=== PATIENT | male | born 1995 | race Caucasian/White ===

== ENCOUNTER 2022-04-17 08:47 | Emergency (ER) | payer MEDICAID ==
[~2022-04-17] VITALS: Ht 177.8 cm; Wt 73.0 kg
[~2022-04-17 08:47] MED LIST: CHLO50TA50 PO; CLOM50CA2 PO; DOCU-138 PO; FLUO20TA29 PO; RISP2 PO; [UNRECOGNIZED DRUG - CODE] PO
[2022-04-17] MEDS ORDERED: ZIPRASIDONE MESYLATE 20MG/VIAL IM ONE (09:00)
[2022-04-17] MEDS ORDERED: ZIPRASIDONE MESYLATE 20MG/VIAL IM NR (10:00)
[2022-04-17 13:49] VITALS: BP 122/78
== END 2022-04-17 13:51 | disposition home or self-care (01) ==
LOC: ER 08:47
DX: F84.0 Autistic disorder (principal)
CPT/HCPCS: 99285; J3486

== ENCOUNTER 2022-07-04 15:04 | Emergency (ER) | payer MEDICAID ==
[~2022-07-04] VITALS: Ht 162.6 cm; Wt 73.0 kg
[2022-07-04 15:15] VITALS: BP 113/77
== END 2022-07-04 20:34 | disposition home or self-care (01) ==
LOC: ER 15:32
DX: S92.322A Displaced fracture of second metatarsal bone, left foot, initial encounter for closed fracture (principal); W22.8XXA Striking against or struck by other objects, initial encounter; R62.50 Unspecified lack of expected normal physiological development in childhood; Y93.89 Activity, other specified; Y92.193 Bedroom in other specified residential institution as the place of occurrence of the external cause
CPT/HCPCS: 29515; 73630; 99283; Z7610

== ENCOUNTER 2022-08-09 10:22 | Emergency (ER) | payer MEDICAID, OTHER ==
[~2022-08-09] VITALS: Ht 167.6 cm; Wt 90.0 kg
[2022-08-09 10:32] VITALS: BP 123/85
== END 2022-08-09 17:14 | disposition home or self-care (01) ==
LOC: ER 10:22
DX: M79.672 Pain in left foot (principal); Z00.00 Encounter for general adult medical examination without abnormal findings
CPT/HCPCS: 73610; 73630; 99284

== ENCOUNTER 2022-10-25 18:41 | Emergency (ER) | payer OTHER ==
[~2022-10-25] VITALS: Ht 162.6 cm; Wt 72.0 kg
[2022-10-25] MEDS ORDERED: HALOPERIDOL LACTATE 5MG/ML VIAL IM STA (19:17)
[2022-10-25] MEDS ORDERED: DIPHENHYDRAMINE 50MG/ML VIAL IM STA (19:17)
[2022-10-25] MEDS ORDERED: LORAZEPAM 2MG/ML CPJ IM STA (19:17)
[2022-10-25 20:26] LABS: BASOPHILS % 0.6 % (0.0-2.0); EOSINOPHILS % 0.9 % (0.0-5.0); HEMATOCRIT. 44.4 % (42.0-52.0); HEMOGLOBIN. 14.7 g/dL (14.0-18.0); LYMPHOCYTES % 23.8 % (20.0-50.0); MEAN CORPUSCULAR HEMOGLOBIN 27.6 pg (28.0-32.0); MEAN CORPUSCULAR VOLUME 83.2 fL (80.0-94.0); MEAN PLATELET VOLUME 9.4 fl (7.4-10.4); MONOCYTES % 9.7 % (2.0-8.0); PLATELET 229 x1000/uL (130-400); RED BLOOD CELL COUNT 5.33 mill/uL (4.7-6.1); RED CELL DISTRIBUTION WIDTH 13.4 % (11.6-14.6)
[2022-10-25 20:27] LABS: CLARITY URINE CLEAR (CLEAR); COLOR URINE YELLOW (YELLOW); KETONES URINE NEGATIVE (NEGATIVE); LEUKOCYTE ESTERASE URINE NEGATIVE (NEGATIVE); NITRITE URINE NEGATIVE (NEGATIVE); OCCULT BLOOD URINE NEGATIVE (NEGATIVE); PH URINE 7.5 (4.5-8.0); PROTEIN URINE NEGATIVE (NEGATIVE); SPECIFIC GRAVITY URINE 1.008 (1.005-1.030); UROBILINOGEN URINE 0.2 E.U./dL (0.2-1.0)
[2022-10-25 20:32] LABS: CHLORIDE 104 mEq/L (98-107)
[2022-10-25 20:41] LABS: ETHANOL BLOOD < 10 mg/dL (-10)
[2022-10-25 20:42] LABS: *AMPHETAMINES SCREEN URINE NEGATIVE (NEGATIVE); *BARBITURATES SCREEN URINE NEGATIVE (NEGATIVE); *BENZODIAZEPINES SCREEN URINE NEGATIVE (NEGATIVE); *COCAINE SCREEN URINE NEGATIVE (NEGATIVE); CANNABINOID URINE SCREEN NEGATIVE (NEGATIVE); METHADONE URINE SCREEN NEGATIVE (NEGATIVE); OPIATES URINE SCREEN NEGATIVE (NEGATIVE); PHENCYCLIDINE URINE SCREEN NEGATIVE (NEGATIVE)
[2022-10-25] MEDS ORDERED: LORAZEPAM 2MG/ML CPJ IM ONE (21:45)
[2022-10-25] MEDS ORDERED: OLANZAPINE 10 MG/VIAL IM ONE (23:45)
[2022-10-26] MEDS ORDERED: ZIPRASIDONE MESYLATE 20MG/VIAL IM ONE (03:45)
[2022-10-26] MEDS ORDERED: LORAZEPAM 2MG/ML CPJ IM ONE (14:15)
[2022-10-26] MEDS ORDERED: DIPHENHYDRAMINE 50MG/ML VIAL IM ONE (16:00)
[2022-10-26] MEDS ORDERED: OLANZAPINE 10 MG/VIAL IM ONE ×2 (16:00→21:45)
[2022-10-27] MEDS ORDERED: OLANZAPINE 10 MG/VIAL IM ONE ×2 (08:15→19:30)
[2022-10-27] MEDS ORDERED: LORAZEPAM 2MG/ML CPJ IM ONE (09:30)
[2022-10-27] MEDS ORDERED: DIPHENHYDRAMINE 50MG/ML VIAL IV ONE (09:30)
[2022-10-27] MEDS ORDERED: GABAPENTIN 100MG CAPSULE PO NR (10:30)
[2022-10-27] MEDS ORDERED: OLANZAPINE 10 MG/VIAL IM NR (10:30)
[2022-10-27] MEDS ORDERED: DIPHENHYDRAMINE 50MG/ML VIAL IM ONE (19:45)
[2022-10-28 03:32] VITALS: BP 135/82
== END 2022-10-28 | disposition home or self-care (01) ==
LOC: ER 18:41
DX: R41.0 Disorientation, unspecified (principal); F84.0 Autistic disorder
CPT/HCPCS: 36415; 80053; 80305; 80307; 80320; 80329; 81003; 85025; 87426; 96372; 96374; 99285; C9803; J1200; J1630; J2060; J3486; J3490; Z7610; A4315; G0480

== ENCOUNTER 2022-11-08 19:28 | Emergency (ER) | payer OTHER ==
[~2022-11-08] VITALS: Ht 180.3 cm; Wt 73.0 kg
[2022-11-08] MEDS ORDERED: ZIPRASIDONE MESYLATE 20MG/VIAL IM ONE (20:00)
[2022-11-08] MEDS ORDERED: LORAZEPAM 2MG/ML CPJ IM ONE (20:00)
[2022-11-09] MEDS ORDERED: ZIPRASIDONE MESYLATE 20MG/VIAL IM ONE ×2 (01:00→08:00)
[2022-11-09 01:52] LABS: *AMPHETAMINES SCREEN URINE NEGATIVE (NEGATIVE); *BARBITURATES SCREEN URINE NEGATIVE (NEGATIVE); *BENZODIAZEPINES SCREEN URINE NEGATIVE (NEGATIVE); *COCAINE SCREEN URINE NEGATIVE (NEGATIVE); CANNABINOID URINE SCREEN NEGATIVE (NEGATIVE); METHADONE URINE SCREEN NEGATIVE (NEGATIVE); OPIATES URINE SCREEN NEGATIVE (NEGATIVE); PHENCYCLIDINE URINE SCREEN NEGATIVE (NEGATIVE)
[2022-11-09 01:56] LABS: BASOPHILS % 0.6 % (0.0-2.0); EOSINOPHILS % 1.1 % (0.0-5.0); HEMATOCRIT. 48.1 % (42.0-52.0); HEMOGLOBIN. 15.8 g/dL (14.0-18.0); LYMPHOCYTES % 32.4 % (20.0-50.0); MEAN CORPUSCULAR HEMOGLOBIN 27.5 pg (28.0-32.0); MEAN CORPUSCULAR VOLUME 83.6 fL (80.0-94.0); MONOCYTES % 10.3 % (2.0-8.0); NEUTROPHILS % 55.6 % (40.0-76.0); PLATELET 260 x1000/uL (130-400); RED BLOOD CELL COUNT 5.75 mill/uL (4.7-6.1); RED CELL DISTRIBUTION WIDTH 13.6 % (11.6-14.6)
[2022-11-09 02:36] LABS: CHLORIDE 108 mEq/L (98-107)
[2022-11-09 02:41] LABS: ETHANOL BLOOD < 10 mg/dL (-10)
[2022-11-09] MEDS ORDERED: LORAZEPAM 2MG/ML CPJ IM ONE ×2 (04:30→08:00)
[2022-11-09] MEDS ORDERED: DIPHENHYDRAMINE 50MG/ML VIAL IM PRN (04:30)
[2022-11-09] MEDS ORDERED: DIPHENHYDRAMINE 50MG/ML VIAL IM ONE (08:00)
[2022-11-09] MEDS ORDERED: MIDAZOLAM HCL 2 MG/2 ML VIAL IM ONE (11:15)
[2022-11-09] MEDS ORDERED: KETAMINE HCL 50 MG/ML 10ML IM ONE (14:15)
[2022-11-09 16:02] VITALS: O2SAT 100
[2022-11-09 19:20] VITALS: BP 125/82; PULSE 84; RESP 16; TEMP 97.2
== END 2022-11-09 19:30 | disposition home or self-care (01) ==
LOC: ER 19:28
DX: R45.6 Violent behavior (principal); Z88.4 Allergy status to anesthetic agent; Z98.890 Other specified postprocedural states
CPT/HCPCS: 36415; 80048; 80305; 80307; 80320; 80329; 85025; 96372; 99291; J1200; J2060; J2250; J3486; J3490; Z7610; G0480

== ENCOUNTER 2022-11-28 13:44 | Emergency (ER) | payer OTHER ==
[~2022-11-28] VITALS: Ht 170.2 cm; Wt 84.0 kg
[2022-11-28 14:40] VITALS: O2SAT 96
[2022-11-28 14:55] VITALS: BP 123/81; PULSE 100; RESP 18; TEMP 98.8
[2022-11-28] MEDS ORDERED: KETAMINE HCL 50 MG/ML 10ML IM ONE (15:15)
[2022-11-28 16:01] LABS: BASOPHILS % 0.6 % (0.0-2.0); HEMOGLOBIN. 14.6 g/dL (14.0-18.0); LYMPHOCYTES % 18.4 % (20.0-50.0); MEAN CORPUSCULAR HEMOGLOBIN 27.9 pg (28.0-32.0); MEAN CORPUSCULAR VOLUME 84.2 fL (80.0-94.0); MEAN PLATELET VOLUME 9.3 fl (7.4-10.4); MONOCYTES % 9.5 % (2.0-8.0); NEUTROPHILS % 68.5 % (40.0-76.0); PLATELET 203 x1000/uL (130-400); RED BLOOD CELL COUNT 5.22 mill/uL (4.7-6.1); RED CELL DISTRIBUTION WIDTH 13.6 % (11.6-14.6)
[2022-11-28 16:06] LABS: CLARITY URINE CLEAR (CLEAR); COLOR URINE YELLOW (YELLOW); KETONES URINE NEGATIVE (NEGATIVE); LEUKOCYTE ESTERASE URINE NEGATIVE (NEGATIVE); NITRITE URINE NEGATIVE (NEGATIVE); OCCULT BLOOD URINE NEGATIVE (NEGATIVE); PH URINE 7.5 (4.5-8.0); PROTEIN URINE NEGATIVE (NEGATIVE); UROBILINOGEN URINE 0.2 E.U./dL (0.2-1.0)
[2022-11-28 16:08] LABS: CHLORIDE 108 mEq/L (98-107)
[2022-11-28 16:15] LABS: ETHANOL BLOOD < 10 mg/dL (-10)
[2022-11-28 16:16] LABS: *AMPHETAMINES SCREEN URINE NEGATIVE (NEGATIVE); *BARBITURATES SCREEN URINE NEGATIVE (NEGATIVE); *BENZODIAZEPINES SCREEN URINE NEGATIVE (NEGATIVE); *COCAINE SCREEN URINE NEGATIVE (NEGATIVE); CANNABINOID URINE SCREEN NEGATIVE (NEGATIVE); METHADONE URINE SCREEN NEGATIVE (NEGATIVE); OPIATES URINE SCREEN NEGATIVE (NEGATIVE); PHENCYCLIDINE URINE SCREEN NEGATIVE (NEGATIVE)
== END 2022-11-28 19:08 | disposition home or self-care (01) ==
LOC: ER 13:44
DX: R45.6 Violent behavior (principal); R45.1 Restlessness and agitation; F84.0 Autistic disorder; F41.9 Anxiety disorder, unspecified
CPT/HCPCS: 80053; 80305; 81003; 80307; 80329; 80320; 85025; 36415; 96372; 99291; J3490; Z7610; G0480

== ENCOUNTER 2022-12-15 11:55 | Emergency (ER) | payer OTHER ==
[~2022-12-15] VITALS: Ht 175.3 cm; Wt 87.0 kg
[2022-12-15 11:58] VITALS: BP 101/52; PULSE 95; RESP 16; TEMP 98; O2SAT 96
[2022-12-15] MEDS ORDERED: ZIPRASIDONE MESYLATE 20MG/VIAL IM STA (12:08)
[2022-12-15] MEDS ORDERED: LORAZEPAM 2MG/ML CPJ IM ONE ×2 (12:45→13:00)
== END 2022-12-15 16:45 | disposition home or self-care (01) ==
LOC: ER 11:55
DX: R45.1 Restlessness and agitation (principal); F84.0 Autistic disorder; F41.9 Anxiety disorder, unspecified
CPT/HCPCS: 99291; 96372; J3486

== ENCOUNTER 2023-05-12 20:39 | Emergency (ER) | payer OTHER ==
[~2023-05-12] VITALS: Ht 162.6 cm; Wt 64.0 kg
[2023-05-12] MEDS ORDERED: DIPHENHYDRAMINE 50MG/ML VIAL IM STA (23:12)
[2023-05-12] MEDS ORDERED: LORAZEPAM 2MG/ML CPJ IM STA (23:12)
[2023-05-12] MEDS ORDERED: OLANZAPINE 10 MG/VIAL IM NR (23:30)
[2023-05-12] MEDS ORDERED: LORAZEPAM 2MG/ML UD SYRINGE IM NR (23:45)
[2023-05-13] MEDS ORDERED: MIDAZOLAM HCL 2 MG/2 ML VIAL IM ONE ×2 (00:45→21:15)
[2023-05-13 01:24] LABS: BASOPHILS % 0.5 % (0.0-2.0); EOSINOPHILS % 0.9 % (0.0-5.0); HEMATOCRIT. 43.7 % (42.0-52.0); HEMOGLOBIN. 14.3 g/dL (14.0-18.0); MEAN CORPUSCULAR HEMOGLOBIN 27.9 pg (28.0-32.0); MEAN CORPUSCULAR HGB CONC 32.8 g/dL (31.0-37.0); MEAN PLATELET VOLUME 9.4 fl (7.4-10.4); MONOCYTES % 7.8 % (2.0-8.0); NEUTROPHILS % 62.8 % (40.0-76.0); PLATELET 192 x1000/uL (130-400); RED BLOOD CELL COUNT 5.14 mill/uL (4.7-6.1); RED CELL DISTRIBUTION WIDTH 13.9 % (11.6-14.6)
[2023-05-13 01:43] LABS: CLARITY URINE CLEAR (CLEAR); COLOR URINE YELLOW (YELLOW); GLUCOSE URINE NEGATIVE (NEGATIVE); KETONES URINE 1+ (NEGATIVE); LEUKOCYTE ESTERASE URINE NEGATIVE (NEGATIVE); NITRITE URINE NEGATIVE (NEGATIVE); OCCULT BLOOD URINE NEGATIVE (NEGATIVE); PH URINE 7.5 (4.5-8.0); PROTEIN URINE NEGATIVE (NEGATIVE); SPECIFIC GRAVITY URINE 1.019 (1.005-1.030); UROBILINOGEN URINE 0.2 E.U./dL (0.2-1.0)
[2023-05-13 01:48] LABS: INR 1.1; PROTHROMBIN TIME 11.8 sec (9.6-11.0)
[2023-05-13 01:49] LABS: *AMPHETAMINES SCREEN URINE NEGATIVE (NEGATIVE); *BARBITURATES SCREEN URINE NEGATIVE (NEGATIVE); *BENZODIAZEPINES SCREEN URINE NEGATIVE (NEGATIVE); *COCAINE SCREEN URINE NEGATIVE (NEGATIVE); CANNABINOID URINE SCREEN NEGATIVE (NEGATIVE); ECSTASY MDMA SCREEN URINE NEGATIVE (NEGATIVE); METHADONE URINE SCREEN Neg (NEGATIVE); OPIATES URINE SCREEN NEGATIVE (NEGATIVE); PHENCYCLIDINE URINE SCREEN NEGATIVE (NEGATIVE)
[2023-05-13 01:50] LABS: ACETAMINOPHEN < 2 ug/mL (10-30); ALANINE AMINOTRANSFERASE 17 IU/L (10-49); ALBUMIN 4.4 g/dL (3.2-4.8); ASPARTATE AMINOTRANSFERASE 17 IU/L (<34); BILIRUBIN TOTAL 0.7 mg/dL (0.1-1.0); CALCIUM 9.5 mg/dL (8.7-10.4); CARBON DIOXIDE 30 mEq/L (21-32); CHLORIDE 104 mEq/L (98-107); CREATININE 0.8 mg/dL (0.6-1.3); ETHANOL BLOOD < 10 mg/dL (<10); GLUCOSE 88 mg/dL (70-105); POTASSIUM 3.6 mEq/L (3.5-5.1); PROTEIN TOTAL 7.9 g/dL (6.0-8.3); SODIUM 139 mEq/L (136-145); UREA NITROGEN BLOOD 15 mg/dL (9-23)
[2023-05-13] MEDS ORDERED: OLANZAPINE 10 MG/VIAL IM ONE (21:15)
[2023-05-13] MEDS ORDERED: DIPHENHYDRAMINE 50MG/ML VIAL IM ONE (21:15)
[2023-05-13] MEDS ORDERED: ZIPRASIDONE MESYLATE 20MG/VIAL IM ONE (23:45)
[2023-05-14] MEDS ORDERED: LORAZEPAM 2MG/ML CPJ IM ONE ×2 (10:00→20:00)
[2023-05-14] MEDS ORDERED: OLANZAPINE 10 MG/VIAL IM ONE (10:00)
[2023-05-14] MEDS ORDERED: LORAZEPAM 2MG/ML UD SYRINGE IM SCH (10:15)
[2023-05-14] MEDS: CHLORPROMAZINE HCL 25 MG TABLET PO SCH ×2 (12:08→21:00)
[2023-05-14] MEDS: OLANZAPINE 5MG TABLET PO SCH (12:08)
[2023-05-14] MEDS ORDERED: CLONAZEPAM 0.5MG TABLET PO SCH (14:00)
[2023-05-14] MEDS ORDERED: ZIPRASIDONE MESYLATE 20MG/VIAL IM ONE (15:15)
[2023-05-14] MEDS: GABAPENTIN 300MG CAPSULE PO SCH (17:00)
[2023-05-14] MEDS ORDERED: DIPHENHYDRAMINE 50MG/ML VIAL IM PRN (20:00)
[2023-05-14] MEDS ORDERED: HALOPERIDOL LACTATE 5MG/ML VIAL IM ONE (20:00)
[2023-05-14] MEDS ORDERED: LORAZEPAM 2MG/ML UD SYRINGE IM NR (20:15)
[2023-05-15] MEDS: OLANZAPINE 5MG TABLET PO SCH ×3 (02:10→23:58)
[2023-05-15] MEDS ORDERED: ZIPRASIDONE MESYLATE 20MG/VIAL IM ONE ×2 (02:45→14:30)
[2023-05-15] MEDS ORDERED: CLONAZEPAM 0.5MG TABLET PO SCH ×2 (06:00→21:00)
[2023-05-15] MEDS: CHLORPROMAZINE HCL 25 MG TABLET PO SCH ×2 (09:00→23:59)
[2023-05-15] MEDS: GABAPENTIN 300MG CAPSULE PO SCH ×2 (09:00→17:42)
[2023-05-16] MEDS ORDERED: ZIPRASIDONE MESYLATE 20MG/VIAL IM ONE ×2 (05:45→16:45)
[2023-05-16] MEDS ORDERED: ZIPRASIDONE MESYLATE 20MG/VIAL IM NR (06:15)
[2023-05-16] MEDS: GABAPENTIN 300MG CAPSULE PO SCH ×2 (09:00→17:00)
[2023-05-16] MEDS: CHLORPROMAZINE HCL 25 MG TABLET PO SCH (09:00)
[2023-05-16] MEDS: OLANZAPINE 5MG TABLET PO SCH (11:08)
[2023-05-16] MEDS ORDERED: GABA-290 MT (13:41)
[2023-05-16] MEDS ORDERED: OLAN15TA35 MT (13:42)
[2023-05-16] MEDS ORDERED: CLON0.5T PO (13:45)
[2023-05-16] MEDS ORDERED: CHLO50TA50 MT (13:48)
[2023-05-16] MEDS: CLONAZEPAM 0.25 MG TAB.RAPDIS PO SCH (14:00)
[2023-05-17] MEDS ORDERED: DIPHENHYDRAMINE 50MG/ML VIAL IM ONE ×2 (02:30→11:00)
[2023-05-17] MEDS ORDERED: LORAZEPAM 2MG/ML CPJ IM ONE (02:30)
[2023-05-17] MEDS ORDERED: LORAZEPAM 2MG/ML UD SYRINGE IM NR (03:00)
[2023-05-17 08:40] VITALS: TEMP 98.9
[2023-05-17] MEDS: CHLORPROMAZINE HCL 25 MG TABLET PO SCH ×2 (09:24→10:27)
[2023-05-17] MEDS: CLONAZEPAM 0.25 MG TAB.RAPDIS PO SCH ×3 (09:26→14:00)
[2023-05-17] MEDS: OLANZAPINE 5MG TABLET PO SCH ×2 (09:26→10:28)
[2023-05-17] MEDS: GABAPENTIN 300MG CAPSULE PO SCH (10:27)
[2023-05-17] MEDS ORDERED: MIDAZOLAM HCL 2 MG/2 ML VIAL IM ONE (11:00)
[2023-05-17 11:12] VITALS: BP 127/81; PULSE 88; RESP 18; O2SAT 100
[2023-05-17] MEDS ORDERED: CALC-824 MT (12:40)
[2023-05-17] MEDS ORDERED: CHOL400D7 MT (12:45)
[2023-05-17] MEDS ORDERED: FLUV100C2 MT (12:45)
[2023-05-17] MEDS ORDERED: FINA1TAB MT (12:45)
[2023-05-17] MEDS ORDERED: BUTE12CR2 TP (12:45)
[2023-05-17] MEDS ORDERED: MELA5TAB21 MT (12:45)
[2023-05-17] MEDS ORDERED: MAGN400T26 MT (12:45)
[2023-05-17] MEDS ORDERED: POLY17PO3 MT (12:47)
[2023-05-17] MEDS ORDERED: TOPUD MT (12:47)
== END 2023-05-17 17:28 ==
LOC: ER 20:39
DX: R45.1 Restlessness and agitation (principal); I49.9 Cardiac arrhythmia, unspecified; Z88.4 Allergy status to anesthetic agent; Z00.00 Encounter for general adult medical examination without abnormal findings
CPT/HCPCS: 36415; 99285; 96372 ×5; 93005; J3490 ×3; J1200 ×4; J2060 ×3; J2250 ×2; J3486 ×4; Q0161 ×3; Z7610